=== PATIENT | female | born 1955 ===

== ENCOUNTER 2024-12-01 20:43 | Emergency (ER) | payer OTHER ==
[~2024-12-01] VITALS: Ht 162.5 cm; Wt 81.2 kg
[2024-12-01 21:07] LABS: BASO # 0.1 10*3/uL (0.0-0.1); BASO % 0.8 % (0.0-1.0); EOS # 0.2 10*3/uL (0.0-0.4); EOS % 2.1 % (1.0-4.0); HEMATOCRIT 41.5 % (37.0-47.0); MEAN CORPUSCULAR HGB 27.9 pg (27.0-31.0); MEAN CORPUSCULAR HGB CONC 32.8 g/dl (33.0-37.0); MEAN PLATELET VOLUME 9.6 fl (9.6-12.3); MONO # 0.8 10*3/uL (0.1-1.0); MONO % 8.3 % (3.0-9.0); NEUT # 6.1 10*3/uL (2.3-7.9); PLATELET COUNT AUTOMATED 271 10*3/uL (130-400); RED BLOOD COUNT 4.88 10*6/uL (4.10-5.10); RED CELL DISTRI WIDTH 13.6 % (0-14.5); WHITE BLOOD COUNT 9.6 10*3/uL (4.8-10.8)
[2024-12-01 21:29] LABS: ALKALINE PHOSPHATASE 71 U/L (46-116); BUN 21 mg/dl (9-23); CHLORIDE 104 mmol/L (98-107); POTASSIUM 3.7 mmol/L (3.4-5.1); SGPT/ALT 21 U/L (5-49)
[2024-12-01] MEDS ORDERED: BUMETANIDE 1 MG/4 ML VIAL IM ONE (23:35)
== END 2024-12-01 23:44 | disposition home or self-care (01) ==
LOC: ED 20:43
PROVIDERS: Internal Medicine
DX: I50.9 Heart failure, unspecified (principal); E11.22 Type 2 diabetes mellitus with diabetic chronic kidney disease; N18.31 Chronic kidney disease, stage 3a; R07.2 Precordial pain; R60.0 Localized edema